=== PATIENT | male | born 1995 | race Caucasian/White ===

== ENCOUNTER → 2017-06-11 08:30 | Emergency (ER) | payer SELFPAY ==
--- NOTE | 2017-06-11 10:16 | ED ---
Lower Extremity - HPI Summary HPI Summary: Lt knee pain 2-3 days ago. Prone to folliculitis (worse when at work, legs sweat all day in pants) - has an area that was more red and swollen - spreading today - fever last night and had diarrhea this morning - feeling better at this time. No known h/o MRSA. - History of Current Complaint Chief Complaint: EDExtremityLower Stated Complaint: KNEE INJURY Time Seen by Provider: 06/11/17 09:36 Hx Obtained From: Patient Pain Intensity: 3 - Allergies/Home Medications Allergies/Adverse Reactions: Allergies Allergy/AdvReac Type Severity Reaction Status Date / Time No Known Allergies Allergy Verified 09/05/14 17:03 PMH/Surg Hx/FS Hx/Imm Hx Previously Healthy: Yes Endocrine/Hematology History: Denies: Hx Diabetes, Hx Thyroid Disease Cardiovascular History: Denies: Hx Hypertension Respiratory History: Denies: Hx Asthma, Hx Chronic Obstructive Pulmonary Disease (COPD) GI History: Denies: Hx Ulcer - Surgical History Surgery Procedure, Year, and Place: lt hand repair Infectious Disease History: Yes Infectious Disease History: Denies: Hx Hepatitis, Hx Human Immunodeficiency Virus (HIV), Traveled Outside the in Last 30 Days - Social History 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 Negative: Abdominal Pain, Vomiting, Nausea Positive: no symptoms reported Negative: Arthralgia, Myalgia Skin: Other - see HPI Neurological: Negative Negative: Headache Psychological: Normal All Other Systems Reviewed And Are Negative: Yes Physical Exam Vital Signs On Initial Exam: Initial Vitals Temp Pulse Resp BP Pulse Ox 96.2 F 88 20 150/90 99 06/11/17 08:40 06/11/17 08:40 06/11/17 08:40 06/11/17 08:40 06/11/17 08:40 - Jorge Coma Scale Coma Scale Total: 15 Diagnostics - Vital Signs Vital Signs Temp Pulse Resp BP Pulse Ox 06/11/17 08:40 96.2 F 88 20 150/90 99 - Laboratory Lab Statement: Any lab studies that have been ordered have been reviewed, and results considered in the medical decision making process. Lower Extremity Course/Dx - Course Course Of Treatment: Discussed pt's sx and recommend blood work w/ possible IVanbx however he's here with his toddler and prefers to forgo further w/u. WIll start PO anbx nad f/u as directed. Reviewed danger s/sx of when to return to ED - pt agrees w/ plan. - Diagnoses Provider Diagnoses: Cellulitis of left knee Discharge - Discharge Plan Condition: Stable Disposition: HOME Prescriptions: Sulfamethox/Trimethoprim DS* [Bactrim DS 800/160 TAB*] 1 tab PO BID #20 tab Forms: *Work Release Referrals: No Primary Care Phys,NOPCP [Primary Care Provider] - [facility] [Outside] Additional Instructions: Wash daily with soap and water - rinse well and cover if open to collect drainage and prevent further irritation/infection. You may apply warm compresses to encourage drainage Complete antibiotics as directed Follow-up with PCP, urgent care in 2-3 days for wound recheck *If redness spreads, return to ED *If fever, chills, vomiting, chest pain, weakness, joint stiffness, return to ED
[2017-06-11 11:06] VITALS: BP 146/80
--- NOTE | 2017-06-12 12:30 | PN ---
Progress Note - Progress Note Date of Service: 06/11/17 Note: Wound culture MRSA positive Patient placed on Bactrim prior to discharge.
--- NOTE | 2017-06-14 10:42 | ED ---
Progress - Progress Note Progress Note: Pt w/ MRSA - on bactrim to which final sens reports as effective. No change at this time. Course/Dx - Course Course Of Treatment: Discussed pt's sx and recommend blood work w/ possible IVanbx however he's here with his toddler and prefers to forgo further w/u. WIll start PO anbx nad f/u as directed. Reviewed danger s/sx of when to return to ED - pt agrees w/ plan. - Diagnoses Provider Diagnoses: Cellulitis of left knee
== END | disposition home or self-care (01) ==
LOC: ED 08:30
DX: L03.116 Cellulitis of left lower limb (principal); R19.7 Diarrhea, unspecified
CPT/HCPCS: 87070; 87077; 87186; 87205; 87640; 87641; 99282